=== PATIENT | female | born 1955 | race Caucasian/White ===

== ENCOUNTER → 2018-10-05 | Outpatient (CLI) | payer MEDICARE, MEDICAID ==
[~2018-10-05] MED LIST: ACHD5005 PO; AMLO5TAB2 PO; ASP325TEC PO; ATOR40TA PO; ATRV10T PO; ERGO400C PO; ESCI20TA2 PO; FENO145T2 PO; FENO48TA PO; GBPN600T PO; HUM100VI4 SC; IBP800T PO; INSU100I14 SQ; INSU100V6 SQ; KCL10CCR PO; LISI10TA PO; LISI40TA PO; MECL-124 PO; NTR.4SL SL; ONDAN4ODT PO; SCOP1PAT TD
== END ==
LOC: CARD 09:01
PROVIDERS: ATTEND Internal Medicine Cardiovascular Disease
DX: R07.89 Other chest pain (principal); I65.29 Occlusion and stenosis of unspecified carotid artery; E11.9 Type 2 diabetes mellitus without complications; I10 Essential (primary) hypertension; G47.30 Sleep apnea, unspecified; I08.2 Rheumatic disorders of both aortic and tricuspid valves
CPT/HCPCS: 93306

== ENCOUNTER → 2018-10-11 | Outpatient (CLI) | payer MEDICARE, MEDICAID ==
[~2018-10-11] VITALS: Ht 154.9 cm; Wt 81.6 kg
[~2018-10-11] MED LIST changes: +CATHETER FLUSH 10 ML SYR IV PRN; +REGADENOSON 0.4 MG/5 ML SYR (LEXISCAN) IV ONE
[2018-10-11 09:31] VITALS: BP 149/84
[2018-10-11 09:33] VITALS: BP 163/89
[2018-10-11 09:35] VITALS: BP 151/88
--- NOTE | 2018-10-11 15:48 | STRESS TEST ---
DATE OF SERVICE: 10/11/2018 LEXISCAN MYOVIEW STRESS TEST REPORT Baseline heart rate is 87, baseline blood pressure 135/77. Baseline EKG is sinus rhythm with no ischemic changes. In summary, the patient was injected with 10.66 mCi of technetium-99 Myoview and the resting images were obtained. Then, the patient received 0.4 mg of Lexiscan followed by 29.3 mCi of technetium-99 Myoview. Throughout the test, there were no EKG changes, the resting and stressed images were reviewed and compared in the short axis, horizontal long axis, and vertical long axis views. Review of the images showed breast attenuation with typical female pattern. No significant ischemia or infarction on SPECT images. SSS is 0, TID value 0.97. On the gated images, the left ventricle appeared to be normal size with normal contractility. Calculated ejection fraction 70%. CONCLUSION: 1. The patient tolerated Lexiscan well. 2. Typical female pattern with no significant ischemia or infarction on SPECT images. 3. Normal left ventricular size with normal contractility. Calculated ejection fraction 70%. Job ID: [id number] DocumentID: [id number] Dictated Date: 10/11/2018 15:25:41 Bit Sander Date: 10/11/2018 15:47:41 Dictated By: BARBIE NEGRETE MD
== END ==
LOC: CARD 07:52
PROVIDERS: ATTEND Internal Medicine Cardiovascular Disease
DX: R07.9 Chest pain, unspecified (principal); I65.29 Occlusion and stenosis of unspecified carotid artery; E11.9 Type 2 diabetes mellitus without complications; I10 Essential (primary) hypertension; G47.30 Sleep apnea, unspecified; I07.1 Rheumatic tricuspid insufficiency
CPT/HCPCS: 78452; 93017

== ENCOUNTER → 2019-04-16 | Outpatient (CLI) | payer MEDICARE, MEDICAID ==
[~2019-04-16] MED LIST changes: -CATHETER FLUSH 10 ML SYR IV PRN; -REGADENOSON 0.4 MG/5 ML SYR (LEXISCAN) IV ONE
[2019-04-16 09:47] LABS: ALBUMIN 4.2 GM/DL (3.2-4.5); BILIRUBIN,TOTAL 0.3 MG/DL (0.1-1.0); CALCIUM 9.6 MG/DL (8.5-10.1); CREATININE SERUM 0.99 MG/DL (0.60-1.30); POTASSIUM 4.2 MMOL/L (3.6-5.0)
== END ==
LOC: LAB 08:57
PROVIDERS: ATTEND Internal Medicine Endocrinology, Diabetes & Metabolism
DX: E55.9 Vitamin D deficiency, unspecified (principal); E11.65 Type 2 diabetes mellitus with hyperglycemia
CPT/HCPCS: 36415; 80053; 82043; 82306

== ENCOUNTER → 2019-04-16 | Outpatient (CLI) | payer MEDICARE, MEDICAID ==
--- NOTE | 2019-04-16 12:02 | Diagnostic Imaging Report ---
EXAMINATION: Bilateral renal Doppler, complete. INDICATION: Hypertension. TECHNIQUE: Spectral and color flow imaging of the kidneys was performed. This study was technically difficult due to the patient's body habitus. FINDINGS: The prior renal ultrasound exam of 03/23/2010 failed to show any sign of a solid renal mass or hydronephrosis of either kidney. On this exam, both kidneys were identified. The right kidney measures 9.6 x 4.2 x 4.8 cm while the left kidney is estimated to be 11.1 x 5.6 x 4.4 cm. The length of the right kidney is probably slightly under-measured. There is no evidence for a solid renal mass or for hydronephrosis of either kidney. The renal cortices are normal in thickness and echogenicity. The proximal renal artery on the right was not well visualized. The mid and distal renal artery on the right failed to show any sign of a hemodynamically significant stenosis. There is no evidence for a hemodynamically significant stenosis of the left renal artery either. The bladder was not imaged during the course of the exam. IMPRESSION: 1. There is no evidence for a solid renal mass or for an acute abnormality of either kidney. 2. The renal arteries, where visualized, show no evidence for a hemodynamically significant stenosis. The proximal-most portion of the right renal artery, however, was not well imaged. Dictated by: Dictated on workstation # [id number]
== END ==
LOC: RAD 08:07
PROVIDERS: ATTEND Internal Medicine Cardiovascular Disease
DX: I65.23 Occlusion and stenosis of bilateral carotid arteries (principal); E11.9 Type 2 diabetes mellitus without complications; I10 Essential (primary) hypertension; I07.1 Rheumatic tricuspid insufficiency
CPT/HCPCS: 76770; 93975

== ENCOUNTER 2020-03-31 10:50 | Emergency (ER) | payer MEDICARE, MEDICAID ==
[~2020-03-31] VITALS: Ht 152 cm; Wt 86.7 kg
--- OUTSIDE RECORDS SUMMARY | 2020-03-31 10:56 | XMS REPORT ---
Author Author Nakia ELLIOTT [facility] Address [address] [place] [address] Care Team Providers Care Line Up Machine Operator Name Role Phone CASEY ELLIOTT Unavailable PROBLEMS No Known Problems ALLERGIES No Information ENCOUNTERS Encounter Location Date Diagnosis [facility] [address] [place] [address] Oct, [facility]ALK IN [facility] [address] [facility] [id number] [address] [place] [phone] Oct, Acute nasopharyngitis J00 [facility] [address] [facility] [id number] [address] [place] [phone] Aug, [facility] [address] [facility] [id number] [address] [place] [phone] Sep, [facility] [address] [facility] [id number] [address] [place] [phone] Sep, [facility] [address] [facility] [id number] [address] [place] [phone] Sep, [facility] [address] [facility] [id number] [address] [place] [phone] Sep, [facility] [address] [facility] [id number] [address] [place] [phone] Jun, [facility] [address] [facility] [id number] [address] [place] [phone] March, [facility] [address] [facility] [id number] [address] [place] [phone] Jan, [facility] [address] [facility] [id number] [address] [place] [phone] Apr, IMMUNIZATIONS No Known Immunizations SOCIAL HISTORY Never Assessed REASON FOR VISIT Medication Refill PLAN OF CARE VITAL SIGNS MEDICATIONS Unknown Medications RESULTS No Results PROCEDURES No Known procedures INSTRUCTIONS MEDICATIONS ADMINISTERED No Known Medications MEDICAL (GENERAL) HISTORY Type Description Date Medical History Diabetic Neuropathy Medical History Diabetes Type II Medical History Heart Disease Medical History HTN Medical History Migraines Medical History HLP Medical History Vitamin D and C deficiency Medical History Mitral valve prolapse Medical History Angina with tachycardia Medical History Depression Surgical History Teeth extraction 1972 Surgical History Hysterectomy 1999 Surgical History Right foot surgery 2003 Surgical History Carpal tunnel surgery, bilateral 2005 Hospitalization History Heart attacks, overnight stay [facility] 2012
--- OUTSIDE RECORDS SUMMARY | 2020-03-31 10:56 | XMS REPORT ---
Author Author Nakia Ibanez Doctor Organization [facility] Address Unknown Phone Unavailable Care Team Providers Care Refrigeration System Installer Name Role Phone Migration, Doctor Unavailable Unavailable PROBLEMS No Known Problems ALLERGIES No Information ENCOUNTERS Encounter Location Date Diagnosis [facility] [address] [place] [address] Oct, [facility] [address] [facility] [id number] [address] [place] [phone] Oct, Acute nasopharyngitis J00 [facility] [address] [facility] [id number] [address] [place] [phone] Aug, [facility] [address] [facility] [id number] [address] [place] [phone] Sep, [facility] [address] [facility] [id number] [address] [place] [phone] Sep, [facility] [address] [facility] [id number] [address] [place] [phone] Sep, [facility] [address] [facility] [id number] [address] [place] [phone] Sep, [facility] [address] [facility] [id number] [address] [place] [phone] Jun, [facility] [place] [address] [facility] [id number] [address] [place] [phone] March, [facility] [place] [address] [facility] [id number] [address] [place] [phone] Jan, [facility] [place] [address] [facility] [id number] [address] [place] [phone] Apr, IMMUNIZATIONS No Known Immunizations SOCIAL HISTORY Never Assessed REASON FOR VISIT EMR-[facility] PLAN OF CARE VITAL SIGNS MEDICATIONS Unknown [...] 2005 Hospitalization History Heart attacks, overnight stay [facility] 2012
--- OUTSIDE RECORDS SUMMARY | 2020-03-31 10:56 | XMS REPORT ---
Author Author Nakia ELLIOTT [facility] Address [address] [place] [address] Care Team Providers Care Hospital Coordinator Name Role Phone CASEY ELLIOTT Unavailable PROBLEMS No Known Problems ALLERGIES No Known Allergies ENCOUNTERS Encounter Location Date Diagnosis [facility] [address] [place] [address] Oct, [facility] [address] [facility] [id number] [address] [place] [phone] Oct, Acute nasopharyngitis J00 [facility] [address] [facility] [id number] [address] [place] [phone] Aug, [facility] [address] [facility] [id number] [address] [place] [phone] Sep, [facility] [address] [facility] [id number] [address] [place] [phone] Sep, [facility] [address] [facility] [id number] [address] [place] [phone] Sep, [facility] [address] [facility] [id number] [address] [place] [phone] Sep, [facility] [address] [facility] [id number] [address] [place] [phone] Jun, [facility] [address] [facility] [id number] [address] [place] [phone] March, [facility] [address] [facility] [id number] [address] [place] [phone] Jan, [facility] [address] [facility] [id number] [address] [place] [phone] Apr, IMMUNIZATIONS No Known Immunizations SOCIAL HISTORY Never Assessed REASON FOR VISIT sore throat, cough which makes throat hurt worse, congestion, headache - DA Li PLAN OF CARE Activity Details Follow Up as needed or reg fu with pc p Reason: VITAL SIGNS Height 63 in 2018-10-24 Weight 187.2 lbs 2018-10-24 Temperature 97.9 degrees Fahrenheit 2018-10-24 Heart Rate 92 bpm 2018-10-24 Respiratory Rate 18 2018-10-24 BMI 33.16 kg/m2 2018-10-24 Blood pressure systolic 114 mmHg 2018-10-24 Blood pressure diastolic 74 mmHg 2018-10-24 MEDICATIONS Medication Instructions Dosage Frequency Start Date End Date Duration S tatus Lisinopril 40 MG Orally Once a day 1 tablet 24h 30 d ay(s) Active Promethazine HCl 25 MG 1 tablet as needed Active Topiramate 50 MG Orally Twice a day 1 tablet 12h 30 day(s) Active Ergocalciferol 50527 UNIT Orally for 8 weeks 1 capsule Active Zetia 10 MG Orally Once a day 1 tablet 24h 30 day(s) Active Lyrica 100 MG Orally Three times a day 1 capsule 8h Active GuaiFENesin ER 1200 MG Orally every 12 hrs 1 tablet as needed 12h 18 Oct, 2018 10 days Active Mobic 15 MG Orally Once a day 1 tablet 24h 30 day(s) Active Toujeo SoloStar 300 UNIT/ML as directed Active Zipsor 25 MG Orally once a day 1 capsule 24h Active Nortriptyline HCl 10 mg Orally QHS 3 capsules Active Escitalopram Oxalate 20 MG Orally Once a day 0.5 tablet 24h 30 day(s) Active Ibuprofen 800 MG Orally Three times a day 1 tablet with food or milk as needed 8h Active Omeprazole 20 MG Orally Once a day 1 capsule 24h 30 day(s) Active HM Vitamin D3 4000 UNIT Orally Once a day 1 capsule 24h Active Fenofibrate 145 MG Orally Once a day 1 tablet with food 24h 30 day(s) Active NovoLog Flexpen 100 UNIT/ML as directed Active Tramadol HCl 50 mg Orally every 8 hrs 2 tablet as needed 8h Active Amlodipine Besylate 5 MG Orally Once a day 1 tablet 24h 30 day(s) Active OneTouch Verio - as directed Act mena Famotidine 20 mg Orally every 12 hrs 1 tablet 12h Active Nitrostat 0.4 MG as directed Act mena Aspirin 325 MG Orally Once a day 1 tablet 24h 30 day (s) Active Glucagon Emergency 1 MG as directed Active Tessalon Perles 100 mg Orally Three times a day 1 capsule as needed 8h 18 Oct, 2018 10 days Active Hydrocodone-Acetaminophen 5-325 MG Orally every 8 hrs 1 tablet as need ed 8h Active Atorvastatin Calcium 80 MG Orally Once a day 1 tablet 24h 30 day(s) Active RESULTS No Results PROCEDURES Procedure Date Ordered Result Body Site [facility] VISIT ESTABLISHED PATIENT Oct 24, 2018 INSTRUCTIONS MEDICATIONS ADMINISTERED No Known Medications MEDICAL [...] Hysterectomy 1999 Surgical History Right foot surgery 2004 Surgical History Carpal tunnel surgery, bilateral 2006 Hospitalization History Heart attacks, overnight stay [facility] 2012
--- OUTSIDE RECORDS SUMMARY | 2020-03-31 10:56 | XMS REPORT ---
Author Author Nakia Ibanez Doctor Organization [facility] Address Unknown Phone Unavailable Care Team Providers Care Mine Environmental Engineer Name Role Phone Migration, Doctor Unavailable Unavailable PROBLEMS No Known Problems ALLERGIES No Information ENCOUNTERS Encounter Location Date Diagnosis [facility] [address] [place] [address] Oct, [facility] [address] [facility] [id number] [address] [place] [phone] Oct, Acute nasopharyngitis J00 [facility] [address] [facility] [id number] [address] [place] [phone] Aug, [facility] [address] [facility] [id number] [address] [place] [phone] Sep, [facility] [address] [facility] [id number] [address] [place] [phone] Sep, [facility] [address] [facility] [id number] [address] [place] [phone] Sep, [facility] [address] [facility] [id number] [address] [place] [phone] Sep, [facility] [address] [facility] [id number] [address] [place] [phone] Jun, [facility] [address] [facility] [id number] [address] [place] [phone] March, [facility] [address] [facility] [id number] [address] [place] [phone] Jan, [facility] [address] [facility] [id number] [address] [place] [phone] Apr, IMMUNIZATIONS No Known Immunizations SOCIAL HISTORY Never Assessed REASON FOR VISIT EMR-[facility] PLAN OF CARE VITAL SIGNS MEDICATIONS Unknown [...] 2005 Hospitalization History Heart attacks, overnight stay [facility] 2012
[2020-03-31 11:38] VITALS: BP 195/90
--- NOTE | 2020-03-31 11:45 | NUR ---
NOTIFEID PT THAT THE PROVIDERS WAS WITH A CRITICAL PT AND THERE MIGHT BE A LONG WAIT TIME.
--- NOTE | 2020-03-31 11:59 | ED General ---
General Chief Complaint: General Problems/Pain Stated Complaint: FACE RASH Nursing Triage Note: ARRIVED VIA AMB TO ROOM 05 WITH COMPLAINTS OF HEADACHE X3 DAYS, LEFT EAR PAIN X2 DAYS, AND A RASH ON THE SIDE OF HER FACE SINCE SAT. STATES HER PAIN IS UNDER HER SKIN. Nursing Sepsis Screen: No Definite Risk Source of Information: Patient Exam Limitations: No Limitations History of Present Illness Date Seen by Provider: March 31, 2020 Time Seen by Provider: 11:51 Initial Comments To ER with left-sided facial pain for about 3 days. No fevers no chills. She did develop a rash and subsequent pain Timing/Duration: 1-2 Days Severity: Moderate Associated Systoms: Chest Pain Allergies and Home Medications Allergies Coded Allergies: No Known Drug Allergies (Unverified , 04/30/09) Home Medications Amlodipine Besylate 5 Mg Tablet, 5 MG PO DAILY, (Reported) Atorvastatin Calcium 40 Mg Tablet, 40 MG PO HS, (Reported) Escitalopram Oxalate 20 Mg Tablet, 20 MG PO DAILY, (Reported) Fenofibrate 48 Mg Tab, 48 MG PO DAILY, (Reported) Gabapentin 600 Mg Tab, 600 MG PO TID, (Reported) Hydrocodone Bit/Acetaminophen 1 Each Tablet, 1 TAB PO Q8H PRN, (Reported) MODERATE PAIN Ibuprofen 800 Mg Tab, 800 MG PO Q8H PRN, (Reported) MILD PAIN Insulin Aspart 100 Unit/1 Ml Insuln.pen, 8 UNIT SQ TIDWM, (Reported) HOME SLIDING SCALE: 140-169 2 UNITS 170-179 4 UNITS 180-189 6 UNITS 190-199 8 UNITS 200-209 10 UNITS 210-219 12 UNITS 220-229 14 UNITS 230-239 14 UNITS 240- 249 18 UNITS; >/= 250 20 UNITS Insulin Glargine,Hum.rec.anlog 100 Unit/1 Ml Vial, 0 SQ UD, (Reported) 25 UNITS IN AM 25 UNITS AT HS Lisinopril 40 Mg Tablet, 40 MG PO DAILY, (Reported) Nitroglycerin 0.4 Mg Subl, 0.4 MG SL NEEDED, (Reported) Patient Home Medication List Home Medication List Reviewed: Yes Review of Systems Review of Systems Constitutional: see HPI EENTM: see HPI Respiratory: no symptoms reported Cardiovascular: no symptoms reported Genitourinary: no symptoms reported Musculoskeletal: no symptoms reported Skin: no symptoms reported Psychiatric/Neurological: No Symptoms Reported Hematologic/Lymphatic: No Symptoms Reported Past Kumdizr-Ujflaz-Fxejry Hx Patient Social History Alcohol Use: Denies Use Recreational Drug Use: No Smoking Status: Never a Smoker Recent Foreign Travel: No Contact w/Someone Who Travel: No Recent Infectious Disease Expo: No Recent Hopitalizations: Yes Immunizations Up To Date Date of Influenza Vaccine: Oct 06, 2011 Past Medical History Surgeries: Yes Respiratory: Yes Cardiac: Yes Neurological: Yes Reproductive Disorders: No Endocrine: Yes Psychosocial: Yes Blood Disorders: Yes Physical Exam Vital Signs Vital Signs - First Documented 03/31/20 11:38 Temp 37.0 Pulse 104 Resp 16 B/P (MAP) 195/90 (125) Pulse Ox 99 O2 Delivery Room Air Capillary Refill : Less Than 3 Seconds Height, Weight, BMI Height: 5'1.00" Weight: 180lbs. 0.0oz. 81.219933qx; 37.00 BMI Method:Stated General Appearance: No Apparent Distress, WD/WN Eyes: Bilateral Eye Normal Inspection, Bilateral Eye PERRL, Bilateral Eye EOMI HEENT: PERRL/EOMI, TMs Normal, Other (Erythematous papulovesicular rash to the left side of the face including on the buccal surface of the left mandible. No eye pain or lesions. ) Neck: Full Range of Motion, Normal Inspection Respiratory: No Accessory Muscle Use, No Respiratory Distress Cardiovascular: Regular Rate, Rhythm, Normal Peripheral Pulses Gastrointestinal: Normal Bowel Sounds, Non Tender, Soft Extremity: Normal Capillary Refill, Normal Inspection Neurologic/Psychiatric: Alert, Oriented x3 Skin: Normal Color, Warm/Dry Progress/Results/Core Measures Suspected Sepsis Recent Fever Within 48 Hours: No Infection Criteria Present: Suspected New Infection New/Unexplained Altered Menta: No Sepsis Screen: No Definite Risk SIRS Temperature: Pulse: 104 Respiratory Rate: 16 Blood Pressure 195 /90 Mean: 125 Results/Orders My Orders Orders - MAI AVILA APRN Tetracaine 0.5% Ophth Farida Sdv (Tetracai (03/31/20 12:15) Fluorescein Strips (Wysbh-A-Xrcecw) (03/31/20 12:15) Balanced Salt Irrigation Soln (Bss Irrig (03/31/20 12:15) Tetracaine 0.5% Ophth Farida Sdv (Tetracai (03/31/20 12:03) Fluorescein Strips (Iedwe-J-Njnwup) (03/31/20 12:03) Vital Signs/I&O 5/25/20 11:38 Temp 37.0 Pulse 104 Resp 16 B/P (MAP) 195/90 (125) Pulse Ox 99 O2 Delivery Room Air Capillary Refill : Less Than 3 Seconds Blood Pressure Mean: 125 Departure Communication (Admissions) upon fluorescein staining there is no area of ulceration to the globe. Impression Primary Impression: Herpes zoster virus infection of face and ear nerves Disposition: 01 HOME, SELF-CARE Condition: Stable Departure-Patient Inst. Decision time for Depature: 12:18 Referrals: WILFRID LUNA MD (PCP/Family) Primary Care Physician Patient Instructions: Shingles Add. Discharge Instructions: Medication as directed. Follow-up with Dr. Luna later this week. Scripts Prednisone (Prednisone) 10 Mg Tab.ds.pk 10 MG PO DAILY, #21 EA Take 6 tabs(60mg)daily,decrease by 1 tab(10MG)daily. Prov: MAI AVILA APRN 03/31/20 Valacyclovir HCl (Valacyclovir) 1,000 Mg Tablet 1000 MG PO TID, #21 TAB Prov: MAI AVILA APRN 03/31/20 MAI AVILA APRN March 31, 2020 11:59
[2020-03-31] MEDS ORDERED: TETRACAINE 0.5% OPHTH SOLN 4 ML BTL (SINGLE DOSE ONLY) ONE (12:03)
[2020-03-31] MEDS ORDERED: FLUORESCEIN (FLUOR-I-STRIPS) 1 MG STRP ONE (12:03)
[2020-03-31] MEDS ORDERED: TETRACAINE 0.5% OPHTH SOLN 4 ML BTL (SINGLE DOSE ONLY) OU ONE (12:15)
[2020-03-31] MEDS ORDERED: BSS 15 ML IR ONE (12:15)
[2020-03-31] MEDS ORDERED: FLUORESCEIN (FLUOR-I-STRIPS) 1 MG STRP OU ONE (12:15)
[2020-03-31] MEDS ORDERED: HYDR-3870 PO (12:20)
[2020-03-31] MEDS ORDERED: VALA10007 PO (12:20)
[2020-03-31] MEDS ORDERED: PRED10TA22 PO (12:20)
== END 2020-03-31 12:22 | disposition home or self-care (01) ==
LOC: EDUNIT# 10:50 → ER 10:52
DX: B02.9 Zoster without complications (principal); Z79.4 Long term (current) use of insulin
CPT/HCPCS: 99281

== ENCOUNTER → 2020-10-13 | Outpatient (CLI) | payer MEDICARE, MEDICAID ==
[~2020-10-13] MED LIST changes: +HYDR-3870 PO; +PRED10TA22 PO; +VALA10007 PO
--- NOTE | 2020-10-13 10:44 | Diagnostic Imaging Report ---
INDICATION: Routine screening. COMPARISON: No prior mammograms are available for comparison. TECHNIQUE: 2D and 3D bilateral screening mammography was performed with CAD. FINDINGS: Scattered fibroglandular densities are identified bilaterally. No mass or malignant appearing microcalcifications are seen. There are occasional benign calcifications. Axillae are unremarkable. IMPRESSION: No mammographic features suspicious for malignancy are identified. ACR BI-RADS Category 2: Benign findings. Result letter will be mailed to the patient. Note: At least 10% of breast cancer is not imaged by mammography. Dictated by: Dictated on workstation # [id number]
== END ==
LOC: RAD 09:15
PROVIDERS: ATTEND Internal Medicine
DX: Z12.31 Encounter for screening mammogram for malignant neoplasm of breast (principal)
CPT/HCPCS: 77063; 77067

== ENCOUNTER → 2021-03-02 | Outpatient (CLI) | payer MEDICARE, MEDICAID | LOC: CARD 08:52 | PROVIDERS: ATTEND Physician Assistant | DX: I08.2 Rheumatic disorders of both aortic and tricuspid valves (principal); I11.9 Hypertensive heart disease without heart failure; E11.9 Type 2 diabetes mellitus without complications; I65.29 Occlusion and stenosis of unspecified carotid artery | CPT/HCPCS: 93306 ==

== ENCOUNTER → 2021-04-13 | Outpatient (CLI) | payer MEDICARE, MEDICAID ==
[~2021-04-13] MED LIST changes: +CATHETER FLUSH 10 ML SYR IV PRN; +REGADENOSON 0.4 MG/5 ML SYR (LEXISCAN) IV ONE
[2021-04-13 09:46] VITALS: BP 176/96
--- NOTE | 2021-04-13 11:33 | Cardiology Stress Test Report ---
Stress Test Report Date of Procedure/Referring: Date of Procedure: Apr 13, 2021 Christina Rayo Admitting Physician No,Local Physician Indications: CP Baseline Heart Rate: 76 Baseline Blood Pressure: Blood Pressure Systolic: 176 Blood Pressure Diastolic: 96 Baseline Vitals Vital Signs Date Time Temp Pulse Resp B/P (MAP) Pulse Ox O2 Delivery O2 Flow Rate FiO2 04/13/21 09:46 76 176/96 (122) 99 Baseline EKG: Baseline EKG: NSR Summary After explaining the procedure to the patient, she signed a consent and then brought to the stress nuclear laboratory. Patient received 0.4 mg Lexiscan for stress test, ECG, heart rate and blood pressure were monitored continuously. Resting and stress dose of radio tracer were injected, imaging was acquired and reviewed in short axis, horizontal long axis and vertical long axis views. TID: 1.08 SSS: 0 SDS: 0 EF: 69 1. Patient tolerated Lexiscan well 2. No significant ischemia or infarction on SPECT images 3. Normal left ventricular size, EF 69% BARBIE NEGRETE MD Apr 13, 2021 11:33
== END ==
LOC: CARD 07:56
PROVIDERS: ATTEND Physician Assistant
DX: I36.1 Nonrheumatic tricuspid (valve) insufficiency (principal); I65.23 Occlusion and stenosis of bilateral carotid arteries; I10 Essential (primary) hypertension; E11.9 Type 2 diabetes mellitus without complications
CPT/HCPCS: 78452; 93017; A9502

== ENCOUNTER → 2022-02-23 | Outpatient (CLI) | payer MEDICARE, MEDICAID ==
[~2022-02-23] MED LIST changes: -CATHETER FLUSH 10 ML SYR IV PRN; -REGADENOSON 0.4 MG/5 ML SYR (LEXISCAN) IV ONE
--- NOTE | 2022-02-23 16:31 | Diagnostic Imaging Report ---
INDICATION: Asymptomatic postmenopausal female. COMPARISON: None. FINDINGS: AP Spine L1-L4: [BMD (g/cm2): 0.897] [T-Score: -2.5] [Z-Score: -1.5] [BMD Previous: NA] [BMD % Change: NA] LT Hip Neck: [BMD (g/cm2): 0.735] [T-Score: -2.2] [Z-Score: -1.1] LT Hip Total: [BMD (g/cm2):0.894] [T-Score:-0.9] [Z-Score: -0.1] [BMD Previous: NA] [BMD % Change: NA] RT Hip Neck: [BMD (g/cm2):0.745] [T-Score:-2.1] [Z-Score:-1.0] RT Hip Total: [BMD (g/cm2):0.869] [T-score:-1.1] [Z-Score:-0.3] [BMD Previous:NA] [BMD % Change:NA] *Indicates significant change from prior examination based on 95% confidence level. World Health Organization criteria for BMD interpretation classify patients as Normal (T-score at or above -1.0), Osteopenic (T-score between -1.0 and -2.5) or Osteoporotic (T-score at or below -2.5). LIMITATIONS AND MODIFICATION: None. FRACTURE RISK (FRAX SCORE): The ten year probability of (%): Major Osteoporotic Fracture: [NA] Hip Fracture: [NA] IMPRESSION: 1. Osteoporosis. 2. Baseline examination. 3. See below National Osteoporosis Foundation guidelines on when to potentially initiate pharmacologic therapy. Based on the National Osteoporosis Foundation Guidelines, pharmacologic treatment should be initiated in any of the following, unless clinical conditions suggest otherwise: * Any patient with prior fragility fracture of the hip or vertebrae. A spine fracture indicates 5X risk for subsequent spine fracture and 2X risk for subsequent hip fracture. * Osteoporosis (T-score <-2.5). * Postmenopausal women and men age 50 and older with low bone mass/osteopenia (T-score between -1.0 and -2.5) by DXA and 10-year major osteoporotic fracture greater than 20% or a 10-year probability of hip fracture greater than 3%. These fracture risks are supplied above in the FRAX score, if applicable. * Clinician judgement and/or patient preferences may indicate treatment for people with 10-year fracture probabilities above or below these levels. Dictated by: Dictated on workstation # [id number]
== END ==
LOC: RAD 12:30
PROVIDERS: ATTEND Internal Medicine
DX: M81.0 Age-related osteoporosis without current pathological fracture (principal); Z78.0 Asymptomatic menopausal state
CPT/HCPCS: 77080

== ENCOUNTER → 2023-03-09 | Outpatient (CLI) | payer MEDICARE, MEDICAID | LOC: CARD 11:36 | PROVIDERS: ATTEND Internal Medicine Cardiovascular Disease | DX: I10 Essential (primary) hypertension (principal); I25.10 Atherosclerotic heart disease of native coronary artery without angina pectoris | CPT/HCPCS: 93306 ==

== ENCOUNTER → 2023-07-27 | Outpatient (CLI) | payer MEDICARE, MEDICAID ==
[~2023-07-27] VITALS: Ht 154 cm; Wt 85.0 kg
[~2023-07-27] MED LIST changes: +CATHETER FLUSH 10 ML SYR IVP PRN; +REGADENOSON 0.4 MG/5 ML SYR IV ONE
[2023-07-27 13:03] VITALS: BP 201/110
--- NOTE | 2023-07-27 14:48 | Cardiology Stress Test Report ---
Stress Test Report Date of Procedure/Referring: Date of Procedure: Jul 27, 2023 Formerly [facility] Admitting Physician Admitting Physician: Attending Physician: Barbie Cornejo MD Baseline Heart Rate: 82 Baseline Blood Pressure: Blood Pressure Systolic: 201 Blood Pressure Diastolic: 110 Baseline Vitals Vital Signs Date Time Temp Pulse Resp B/P (MAP) Pulse Ox O2 Delivery O2 Flow Rate FiO2 07/27/23 13:03 82 201/110 (140) 98 Baseline EKG: Baseline EKG: NSR Summary After explaining the procedure to the patient, she signed a consent and then brought to the stress nuclear laboratory. Patient received 0.4 mg Lexiscan for stress test, ECG, heart rate and blood pressure were monitored continuously. Resting and stress dose of radio tracer were injected, imaging was acquired and reviewed in short axis, horizontal long axis and vertical long axis views. TID: 1.09 SSS: 4 SDS: 4 EF: 69 Patient tolerated Lexiscan well No significant ischemia or infarction on SPECT images Normal left ventricular size, ejection fraction 69% Copy Copies To 1: [facility]/ BARBIE CORNEJO MD Jul 27, 2023 14:48
== END ==
LOC: CARD 11:16
PROVIDERS: ATTEND Internal Medicine Cardiovascular Disease
DX: I10 Essential (primary) hypertension (principal); I25.10 Atherosclerotic heart disease of native coronary artery without angina pectoris
CPT/HCPCS: 78452; 93017